=== PATIENT | male | born 1985 | race Caucasian/White ===

== ENCOUNTER → 2021-03-17 | Outpatient (CLI) | payer MEDICAID ==
[~2021-03-17] VITALS: Ht 167.6 cm; Wt 74.3 kg
[~2021-03-17] MED LIST: 00186-0372-20 IH; ACCOLATE10 MG PO; ALBUTEROL0.83 MG/ML IH; CLARITIN REDITA10 MG PO; PRILOSEC 20MG20 MG PO; PROAIR HFA0.09 MG/AC IH; VALIUM 2MG T2 MG/TAB PO; ZYRTEC 10MG10 MG PO
[2021-03-17 15:22] VITALS: BP 125/81; PULSE 76; TEMP 98.3
== END ==
LOC: EUO 13:55
DX: J45.50 Severe persistent asthma, uncomplicated (principal); Z79.899 Other long term (current) drug therapy
CPT/HCPCS: J2357

== ENCOUNTER 2021-04-14 14:06 | Outpatient (CLI) | payer MEDICAID ==
[~2021-04-14] VITALS: Ht 167.6 cm; Wt 74.0 kg
[2021-04-14 14:37] VITALS: BP 132/84; PULSE 74; TEMP 98.7
== END 2021-04-14 15:06 | disposition home or self-care (01) ==
LOC: EUO 14:06
DX: J45.50 Severe persistent asthma, uncomplicated (principal); Z79.899 Other long term (current) drug therapy
CPT/HCPCS: J2357

== ENCOUNTER 2021-05-12 13:54 | Outpatient (CLI) | payer MEDICAID ==
[~2021-05-12] VITALS: Ht 167.6 cm; Wt 70.7 kg
[2021-05-12 14:19] VITALS: BP 135/71; PULSE 82; TEMP 98.1
== END 2021-05-12 14:43 | disposition home or self-care (01) ==
LOC: EUO 13:54
DX: J45.50 Severe persistent asthma, uncomplicated (principal); Z79.899 Other long term (current) drug therapy
CPT/HCPCS: J2357

== ENCOUNTER 2021-06-09 13:47 | Outpatient (CLI) | payer MEDICAID ==
[~2021-06-09] VITALS: Ht 167.6 cm; Wt 74.0 kg
[2021-06-09 14:00] VITALS: BP 125/74; PULSE 61; TEMP 99.2
== END 2021-06-09 14:31 | disposition home or self-care (01) ==
LOC: EUO 13:47
DX: J45.50 Severe persistent asthma, uncomplicated (principal); Z79.899 Other long term (current) drug therapy
CPT/HCPCS: J2357

== ENCOUNTER 2021-07-07 12:42 | Outpatient (CLI) | payer MEDICAID ==
[~2021-07-07] VITALS: Ht 167.6 cm; Wt 72.1 kg
[2021-07-07 13:30] VITALS: BP 130/70; PULSE 70; TEMP 97.3
== END 2021-07-07 14:00 | disposition home or self-care (01) ==
LOC: EUO 12:42
DX: J45.50 Severe persistent asthma, uncomplicated (principal)
CPT/HCPCS: J2357

== ENCOUNTER 2021-08-04 13:01 | Outpatient (CLI) | payer MEDICAID ==
[~2021-08-04] VITALS: Ht 167.6 cm; Wt 70.0 kg
[2021-08-04 13:36] VITALS: BP 116/73; PULSE 69; TEMP 98.7
== END 2021-08-04 13:55 | disposition home or self-care (01) ==
LOC: EUO 13:01
DX: J45.50 Severe persistent asthma, uncomplicated (principal); Z79.899 Other long term (current) drug therapy
CPT/HCPCS: J2357

== ENCOUNTER 2021-09-01 12:58 | Outpatient (CLI) | payer MEDICAID ==
[~2021-09-01] VITALS: Ht 167.6 cm; Wt 69.9 kg
[2021-09-01 13:43] VITALS: BP 133/88; PULSE 73; TEMP 98.1
[2021-09-01] MEDS ORDERED: XOLAIR150 MG/1 M SQ (13:51)
== END 2021-09-01 14:17 | disposition home or self-care (01) ==
LOC: EUO 12:58
DX: J45.50 Severe persistent asthma, uncomplicated (principal)

== ENCOUNTER 2021-09-29 12:55 | Outpatient (CLI) | payer MEDICAID ==
[~2021-09-29] VITALS: Ht 167.6 cm; Wt 70.7 kg
[~2021-09-29 12:55] MED LIST changes: +XOLAIR150 MG/1 M SQ
[2021-09-29] MEDS ORDERED: ZOFRAN 4MG T4 MG/TAB PO (13:43)
[2021-09-29 13:47] VITALS: BP 156/92; PULSE 94; TEMP 98.2
== END 2021-09-29 14:15 | disposition home or self-care (01) ==
LOC: EUO 12:55
DX: Z79.899 Other long term (current) drug therapy (principal)

== ENCOUNTER 2021-10-27 12:56 | Outpatient (CLI) | payer MEDICAID ==
[~2021-10-27] VITALS: Ht 167.6 cm; Wt 71.8 kg
[~2021-10-27 12:56] MED LIST changes: +ZOFRAN 4MG T4 MG/TAB PO
[2021-10-27 13:48] VITALS: BP 113/77; PULSE 83; TEMP 97.9
== END 2021-10-27 13:59 ==
LOC: EUO 12:56
DX: J45.50 Severe persistent asthma, uncomplicated (principal)

== ENCOUNTER 2021-11-25 12:44 | Outpatient (CLI) | payer MEDICAID ==
[~2021-11-25] VITALS: Ht 167.6 cm; Wt 70.9 kg
[2021-11-25 13:23] VITALS: BP 136/73; PULSE 80; TEMP 97.9
== END 2021-11-25 13:25 ==
LOC: EUO 12:44
DX: J45.50 Severe persistent asthma, uncomplicated (principal); Z79.899 Other long term (current) drug therapy
CPT/HCPCS: J2357

== ENCOUNTER 2021-12-23 12:39 | Outpatient (CLI) | payer MEDICAID ==
[~2021-12-23] VITALS: Ht 167.6 cm; Wt 74.2 kg
[2021-12-23 12:55] VITALS: BP 138/76; PULSE 86; TEMP 98.3
== END 2021-12-23 13:15 | disposition home or self-care (01) ==
LOC: EUO 12:39
DX: J45.50 Severe persistent asthma, uncomplicated (principal); Z79.899 Other long term (current) drug therapy
CPT/HCPCS: J2357